=== PATIENT | male | born 1975 | race Caucasian/White ===

== ENCOUNTER 2019-03-05 14:03 | Emergency (ER) | payer SELFPAY ==
[~2019-03-05] VITALS: Ht 182.9 cm; Wt 99.8 kg
[2019-03-05 14:13] VITALS: BP 140/91
--- NOTE | 2019-03-05 14:20 | NUR ---
PT PRESENTED TO ED C/O RIGHT UPPER INNER ARM PAIN WITH ABSCESS SINCE LAST SATURDAY, SITE NOTED WITH REDNESS, WARM AND HARD TO TOUCH, NO DRAINAGE NOTED AT THIS TIME, PAIN OF 3/10 THAT DOES NOT RADIATE, NO N/V/D, AAOX4, RR EVEN AND UNLABORED, PATIENT HAD HISTORY OF ABSCESS AND TOOK KEFLEX FOR 14 DAYS IN JANUARY. ED MD DR PRIETO MADE AWARE, WILL CONTINUE TO MONITOR CLOSELY, BED IN LOW POSITION.
[2019-03-05] MEDS ORDERED: LIDOCAINE 1% 500 MG/50 ML VIAL INJ SCH (14:35)
[2019-03-05] MEDS ORDERED: LIDOCAINE MPF 1% - 5 mL VIAL 10 ML ONE (14:57)
[2019-03-05 15:30] VITALS: BP 135/86
--- NOTE | 2019-03-05 15:30 | NUR ---
Patient discharged with v/s stable. Written and verbal after care instructions given and explained. Patient alert, oriented and verbalized understanding of instructions. Ambulatory with steady gait. All questions addressed prior to discharge. ID band removed. Patient advised to follow up with PMD. Rx of Doxycycline 100mg given. Patient educated on indication of medication including possible reaction and side effects. Opportunity to ask questions provided and answered.
== END 2019-03-05 15:30 | disposition home or self-care (01) ==
LOC: MED 14:03
DX: L02.411 Cutaneous abscess of right axilla (principal)
CPT/HCPCS: 10060; 99283; J2001